=== PATIENT | male | born 1965 | race Asian ===

== ENCOUNTER 2016-10-21 13:52 | Emergency (ER) | payer BC ==
[~2016-10-21 13:52] MED LIST: AMOXICILLIN500 M PO; AUGMENTIN 875-11 TAB PO; FLAGYL500 MG PO; ISONIAZID300 MG PO; PEPTO-BISMOL262 M PO; PRILOSEC10 MG PO; TYLENOL325 MG PO; VISINE TEARS DR30 ML OP; VITAMIN B-250 MG PO; VITAMIN B6 PO; [UNRECOGNIZED DRUG - OTHER] PO
[2016-10-21] MEDS ORDERED: ATORVASTATIN CA20 M1 PO (15:02)
== END 2016-10-21 15:47 ==
LOC: EDMED 13:52
PROC: 0W3Q7ZZ Control Bleeding in Respiratory Tract, Via Natural or Artificial Opening (ICD-10-PCS; principal; 2016-10-21)
DX: R04.0 Epistaxis (principal)